=== PATIENT | male | born 1970 | race Caucasian/White ===

== ENCOUNTER 2017-06-01 16:11 | Emergency (ER) | payer OTHER, SELFPAY ==
[2017-06-01] MEDS ORDERED: Alum-Mag Hydrox-Simethicone Susp (30 mL) PO STA (16:42)
--- NOTE | 2017-06-01 16:47 | ED PDOC ---
Arrival/HPI - General Chief Complaint: Abdominal Pain Time Seen by Provider: 06/01/17 16:15 Historian: Patient - History of Present Illness Narrative History of Present Illness (Text): 06/01/17 16:49 A 46 year old male, whose past medical history includes diabetes and hypertension, presents to the emergency department complaining of epigastric abdominal pain for the last 8 months, worsening recently. Patient reports pain is worse after eating and hasn't seen a doctor for pain yet. Patient notes pain occasionally radiates around left side to the back. Admits to drinking beer daily and normally eats spicy foods. Reports he is not taking anything for symptoms. Patient reports nausea but denies any vomiting or any other complaints at this time. PMD: None Medications: Metformin Time/Duration: Other (8 months) Symptom Onset: Sudden Symptom Course: Unchanged Activities at Onset: Rest Context: Home Past Medical History - Provider Review Nursing Documentation Reviewed: Yes - Endocrine/Metabolic Hx Endocrine Disorders: Yes Hx Diabetes Mellitus Type 2: Yes - Psychiatric Hx Substance Use: No Family/Social History - Physician Review Nursing Documentation Reviewed: Yes Family/Social History: Other (non-contributory) Smoking Status: Never Smoked Hx Alcohol Use: Yes Frequency of alcohol use: Few days per week Hx Substance Use: No Allergies/Home Meds Allergies/Adverse Reactions: Allergies No Known Allergies Allergy (Verified 06/01/17 16:26) Home Medications: Home Meds Medication Instructions Recorded Confirmed metFORMIN [glucOPHAGE] 500 mg PO BID 06/01/17 06/01/17 Review of Systems - Physician Review All systems were reviewed & negative as marked: Yes - Review of Systems Gastrointestinal: Abdominal Pain (epigastric), Nausea. absent: Vomiting Musculoskeletal: Back Pain, Other (left sided flank pain) Physical Exam Vital Signs Reviewed: Yes Vital Signs Temp Pulse Resp BP Pulse Ox 06/01/17 16:26 98.6 F 76 18 142/78 98 Appearance: Positive for: Well-Appearing, Non-Toxic, Comfortable Pain Distress: None Mental Status: Positive for: Alert and Oriented X 3 - Systems Exam Head: Present: Atraumatic, Normocephalic Pupils: Present: PERRL Extroacular Muscles: Present: EOMI Conjunctiva: Present: Normal Mouth: Present: Moist Mucous Membranes Neck: Present: Normal Range of Motion Respiratory/Chest: Present: Clear to Auscultation, Good Air Exchange. No: Respiratory Distress, Accessory Muscle Use Cardiovascular: Present: Regular Rate and Rhythm, Normal S1, S2. No: Murmurs Abdomen: Present: Tenderness (epigastric), Normal Bowel Sounds. No: Distention , Peritoneal Signs Back: Present: Normal Inspection Upper Extremity: Present: Normal Inspection. No: Cyanosis, Edema Lower Extremity: Present: Normal Inspection. No: Edema Neurological: Present: GCS=15, CN II-XII Intact, Speech Normal Skin: Present: Warm, Dry, Normal Color. No: Rashes Psychiatric: Present: Alert, Oriented x 3, Normal Insight, Normal Concentration Medical Decision Making ED Course and Treatment: 06/01/17 16:44 EKG: Ordered, reviewed, and independently interpreted the EKG. Rate : 76 BPM Rhythm : NSR Interpretation : Incomplete right bundle branch block, no acute ischemia 06/01/17 18:52 On re-evaluation, patient feels better after treatment. I have discussed the results and plan with the patient, who expresses understanding. Patient in agreement with plan to be discharged home. Patient is stable for discharge. Patient was instructed to follow up with physician or return if symptoms worsen or new concerning symptoms arise. - Lab Interpretations Lab Results: 06/01/17 17:05 06/01/17 17:05 Lab Results 06/01/17 17:35: Urine Color Yellow, Urine Appearance Clear, Urine pH 6.0, Ur Specific Navarro >= 1.030, Urine Protein Negative, Urine Glucose (UA) 100 H, Urine Ketones Negative, Urine Blood Negative, Urine Nitrate Negative, Urine Bilirubin Negative, Urine Urobilinogen 0.2, Ur Leukocyte Esterase Negative 06/01/17 17:05: Sodium 139, Potassium 3.4 L, Chloride 104, Carbon Dioxide 26, Anion Gap 12, BUN 16, Creatinine 0.6 L, Est GFR ( Amer) > 60, Est GFR ( Non-Af Amer) > 60, Random Glucose 221 H, Calcium 8.9, Total Bilirubin 0.5, AST 35, ALT 44, Alkaline Phosphatase 52, Troponin I < 0.01, Total Protein 7.0, Albumin 4.1, Globulin 2.9, Albumin/Globulin Ratio 1.4, Lipase 145 06/01/17 17:05: WBC 5.6, RBC 4.30, Hgb 13.2 L, Hct 38.7 L, MCV 90.0, MCH 30.7, MCHC 34.1, RDW 13.6, Plt Count 252, MPV 9.2, Gran % 49.3 L, Lymph % (Auto) 40.2 H, Teller % (Auto) 6.0, Eos % (Auto) 4.3, Baso % (Auto) 0.2, Gran # 2.78, Lymph # 2.3, Teller # 0.3, Eos # 0.2, Baso # 0.01 I have reviewed the lab results: Yes - EKG Interpretation Interpreted by ED Physician: Yes Type: 12 lead EKG - Medication Orders Current Medication Orders: Sodium Chloride (Sodium Chloride 0.9%) 1,000 mls @ 999 mls/hr IV .Q1H1M STA Stop: 06/01/17 19:11 Last Admin: 06/01/17 18:16 Dose: 999 mls/hr eMAR Start Stop Document 06/01/17 18:16 [facility] (Rec: 06/01/17 18:17 [facility] [id number]) Intravenous Solution Start Date 06/01/17 Start Time 18:15 End Date 06/01/17 End time 19:15 Total Infusion Time 60 Discontinued Medications Al Hydrox/Mg Hydrox/Simethicone (Maalox Plus 30 Ml) 30 ml PO STAT STA Stop: 06/01/17 16:43 Last Admin: 06/01/17 17:05 Dose: 30 ml Famotidine (Pepcid) 20 mg IVP STAT STA Stop: 06/01/17 16:43 Last Admin: 06/01/17 17:25 Dose: 20 mg IVP Administration Document 06/01/17 17:25 [facility] (Rec: 06/01/17 17:42 [facility] [id number]) Charges for Administration # of IVP Administrations 1 Lidocaine HCl (Lidocaine 2% Viscous) 15 ml PO STAT STA Stop: 06/01/17 16:43 Last Admin: 06/01/17 17:05 Dose: 15 ml Ondansetron HCl (Zofran Inj) 4 mg IVP ONCE ONE Stop: 06/01/17 18:11 Last Admin: 06/01/17 18:17 Dose: 4 mg IVP Administration Document 06/01/17 18:17 [facility] (Rec: 06/01/17 18:17 [facility] [id number]) Charges for Administration # of IVP Administrations 1 - Scribe Statement The provider has reviewed the documentation as recorded by the Samiiblisbeth Willingham Provider Scribe Attestation: All medical record entries made by the Scribe were at my direction and personally dictated by me. I have reviewed the chart and agree that the record accurately reflects my personal performance of the history, physical exam, medical decision making, and the department course for this patient. I have also personally directed, reviewed, and agree with the discharge instructions and disposition. Disposition/Present on Arrival - Present on Arrival History of DVT/PE: No History of Uncontrolled Diabetes: No Urinary Catheter: No History of Decub. Ulcer: No History Surgical Site Infection Following: None - Disposition Diagnosis: Gastritis Disposition: HOME/ ROUTINE Disposition Time: 18:52 Patient Problems: Current Active Problems Problem Status Onset Gastritis Acute Condition: IMPROVED Discharge Instructions (ExitCare): Gastritis (ED), Diet for Ulcers and Gastritis (ED) Print Language: PASHTO Additional Instructions: Please follow up with a primary doctor in the next week. Return to the ER for any worsening symptoms or for any other concerns. Prescriptions: Famotidine [Pepcid] 20 mg PO DAILY #14 tab Referrals: [facility] [place]] - Follow up with primary PCP,NO [Primary Care Provider] - Follow up with primary Forms: [employer] (Citizen [place])
[2017-06-01 16:57] VITALS: TEMP 98.6
[2017-06-01 17:27] LABS: BASO # 0.01 K/mm3 (0.0-2.0); BASO % 0.2 % (0.0-3.0); EOS # 0.2 (0.0-0.7); EOS % 4.3 % (1.5-5.0); GRAN # 2.78 (1.4-6.5); GRAN % 49.3 % (50.0-68.0); HEMATOCRIT 38.7 % (42.0-52.0); LYMPH # 2.3 (1.2-3.4); LYMPH % 40.2 % (22.0-35.0); MEAN CORPUSCULAR HEMOGLOBIN 30.7 pg (25.0-35.0); MEAN CORPUSCULAR HGB CONC 34.1 g/dl (31.0-37.0); MEAN PLATELET VOLUME 9.2 fl (7.0-11.0); MONO # 0.3 (0.1-0.6); RED CELL DISTRIBUTION WIDTH 13.6 % (11.5-14.5); WHITE BLOOD COUNT 5.6 10^3/ul (4.5-11.0)
[2017-06-01 17:35] LABS: ALB/GLOB RATIO 1.4 (1.1-1.8); ALKALINE PHOSPHATASE 52 U/L (38-126); ALT/SGPT 44 U/L (7-56); AST/SGOT 35 U/L (17-59); BILIRUBIN,TOTAL 0.5 mg/dL (0.2-1.3); BLOOD UREA NITROGEN 16 mg/dL (7-21); CALCIUM 8.9 mg/dL (8.4-10.5); CARBON DIOXIDE 26 mmol/L (21-33); CHLORIDE 104 mmol/L (98-107); GFR AFRICAN-AMERICAN > 60; GLUCOSE,RANDOM 221 mg/dL (70-110); LIPASE 145 U/L (23-300); POTASSIUM 3.4 mmol/L (3.6-5.0); SODIUM 139 mmol/L (132-148)
[2017-06-01 17:48] LABS: TROPONIN I < 0.01 ng/mL
[2017-06-01 17:53] LABS: URINE APPEARANCE CLEAR (CLEAR); URINE BILIRUBIN NEGATIVE (NEGATIVE); URINE BLOOD NEGATIVE (NEGATIVE); URINE COLOR YELLOW (YELLOW); URINE GLUCOSE (UA) 100 mg/dL (NEGATIVE); URINE KETONE NEGATIVE (NEGATIVE); URINE LEUKOCYTE ESTERASE NEGATIVE Leu/uL (NEGATIVE); URINE PROTEIN NEGATIVE mg/dL (<30 mg/dL); URINE UROBILINOGEN 0.2 E.U./dL (<1 E.U./dL)
[2017-06-01] MEDS ORDERED: Sodium Chloride 0.9% 1,000 ML IV STA (18:11)
[2017-06-01 19:18] VITALS: BP 118/70; PULSE 81; RESP 17; O2SAT 99
--- NOTE | 2017-06-02 09:54 | CARD ---
APPROVED REPORT EKG Measurement Heart [id number] <Conclusion> Normal sinus rhythm Incomplete right bundle branch block Moderate voltage criteria for LVH, may be normal variant Leftward axis NSSTW changes
== END 2017-06-01 19:18 | disposition home or self-care (01) ==
LOC: ED 16:11
DX: K29.70 Gastritis, unspecified, without bleeding (principal)
CPT/HCPCS: 80053; 81003; 83690; 84484; 85025; 93005; 96361; 96374; 96375; 99283; J2405; J7040